=== PATIENT | male | born 1995 | race Two or more races ===

== ENCOUNTER 2016-10-31 02:14 | Emergency (ER) | payer OTHER ==
[~2016-10-31] VITALS: Ht 175.3 cm; Wt 102.0 kg
[2016-10-31 03:09] LABS: HEMATOCRIT 44.7 % (38.0-50.0); MCH 30.8 PG (29.0-34.0); MCHC 32.4 G/DL (30.0-36.0); MCV 94.9 FL (86-99); MEAN PLAT.VOLUME 11.7 uM^3 (9.0-12.4); PLATELET COUNT 308 K/uL (156-360); RBC DIS.WIDTH-SD 45.8 % (39-53); RED BLOOD COUNT 4.71 M/uL (4.00-5.50); WHITE BLOOD COUNT 13.6 K/uL (4.1-10.2)
[2016-10-31 03:16] LABS: BILIRUBIN NEGATIVE; BLOOD NEGATIVE; COLOR YELLOW ((YELLOW)); GLUCOSE (STRIP) NEGATIVE; KETONES 20; LEUKOCYTES NEGATIVE; NITRITE NEGATIVE; PROTEIN (STRIP) NEGATIVE; SPECIFIC GRAVITY 1.025 (1.000-1.030)
[2016-10-31 03:18] LABS: ADD MIUA? NO; UCUL ADDED? NO
[2016-10-31 03:26] LABS: CHLORIDE 102 mEq/L (99-109); POTASSIUM 3.3 mEq/L (3.7-5.4); SODIUM 139 mEq/L (136-147)
[2016-10-31 03:29] LABS: GLUCOSE 114 mg/dL (70-99)
[2016-10-31 03:30] LABS: ANION GAP 10 MEQ/L (2-14)
[2016-10-31 03:32] LABS: ALKALINE PHOSPHATASE 42 IU/L (3-129)
[2016-10-31 03:33] LABS: GFR ESTIMATE (CALCULATED) > 59 mL/min/; UREA NITROGEN (BUN) 15 mg/dL (9-23)
[2016-10-31 03:36] LABS: LIPASE 15 U/L (1.0-51.0)
[2016-10-31] MEDS ORDERED: NORCO 5/3251 TABLET PO (05:22)
[2016-10-31] MEDS ORDERED: ZOFRAN4 MG PO (05:22)
[2016-10-31] MEDS ORDERED: NAPROSYN500 MG PO (05:22)
[2016-10-31 05:37] VITALS: BP 163/96
== END 2016-10-31 05:39 | disposition home or self-care (01) ==
LOC: EME 02:14
DX: K80.70 Calculus of gallbladder and bile duct without cholecystitis without obstruction (principal)
CPT/HCPCS: 76705; 80053; 81003; 83690; 85027; 99281; 99284; J1885

== ENCOUNTER 2016-12-02 08:23 | Day surgery (SDC) | payer OTHER ==
[~2016-12-02] VITALS: Ht 175.3 cm; Wt 99.0 kg
[~2016-12-02 08:23] MED LIST: ADVIL200 MG PO; NAPROSYN500 MG PO; NORCO 5/3251 TABLET PO; TOPAMAX100 MG PO; ZOFRAN4 MG PO
[2016-12-02 08:54] VITALS: BP 121/78
[2016-12-02] MEDS ORDERED: NORCO 5/3251 TABLET PO (13:41)
[2016-12-02 15:20] VITALS: BP 150/99
[2016-12-02 16:36] VITALS: BP 138/92
== END 2016-12-02 16:45 | disposition home or self-care (01) ==
LOC: SDC 08:23
PROC: 0FT44ZZ Resection of Gallbladder, Percutaneous Endoscopic Approach (ICD-10-PCS; principal; 2016-12-02)
DX: K80.12 Calculus of gallbladder with acute and chronic cholecystitis without obstruction (principal); F41.9 Anxiety disorder, unspecified; Z83.3 Family history of diabetes mellitus; Z83.49 Family history of other endocrine, nutritional and metabolic diseases
CPT/HCPCS: 88304; J0131; J0330; J1170; J1885; J2250; J2710; J3010

== ENCOUNTER 2017-06-22 23:27 | Emergency (ER) | payer OTHER ==
[~2017-06-22] VITALS: Ht 177.8 cm; Wt 110.7 kg
[2017-06-23 00:09] LABS: HEMATOCRIT 45.8 % (38.0-50.0); HEMOGLOBIN 15.4 G/DL (12.5-16.6); MCHC 33.6 G/DL (30.0-36.0); MCV 95.2 FL (86-99); PLATELET COUNT 334 K/uL (156-360); RBC DIS.WIDTH-CV 13.1 % (11.8-14.6); RBC DIS.WIDTH-SD 46.7 % (39-53); RED BLOOD COUNT 4.81 M/uL (4.00-5.50); WHITE BLOOD COUNT 8.6 K/uL (4.1-10.2)
[2017-06-23 00:17] LABS: CHLORIDE 106 mEq/L (99-109); POTASSIUM 3.7 mEq/L (3.7-5.4); SODIUM 141 mEq/L (136-147)
[2017-06-23 00:19] LABS: GLUCOSE 88 mg/dL (70-99)
[2017-06-23 00:22] LABS: CREATININE 0.8 mg/dL (0.6-1.3); GFR ESTIMATE (CALCULATED) > 59 mL/min/ (58.99-99999); SERUM ETHYL ALCOHOL < 10 mg/dL
[2017-06-23 00:23] LABS: UREA NITROGEN (BUN) 19 mg/dL (9-23)
[2017-06-23 02:16] LABS: AMPHETAMINE NEGATIVE (500 ng/mL); BARBITURATES NEGATIVE (200 ng/mL); BENZODIAZEPINES NEGATIVE (150 ng/mL); BUPRENORPHINE NEGATIVE (10 ng/mL); COCAINE NEGATIVE (150 ng/mL); METHADONE NEGATIVE (200 ng/mL); METHAMPHETAMINE NEGATIVE (500 ng/mL); OPIATES (MORPHINE) NEGATIVE (100 ng/mL); OXYCODONE NEGATIVE (100 ng/mL); PHENCYCLIDINE NEGATIVE (25 ng/mL); PROPOXYPHENE NEGATIVE (300 ng/mL); THC CANNABINOIDS NEGATIVE (50 ng/mL); TRICYCLIC ANTIDEPRESSANTS NEGATIVE (300 ng/mL)
[2017-06-23] MEDS ORDERED: HYDRALAZINE HCL25 MG PO (04:33)
[2017-06-23 05:00] VITALS: BP 124/94
== END 2017-06-23 05:09 | disposition home or self-care (01) ==
LOC: EME 23:27
DX: F33.9 Major depressive disorder, recurrent, unspecified (principal); F41.9 Anxiety disorder, unspecified
CPT/HCPCS: 80048; 85027; 90839; 99281; 99285; G0480; Q0177